=== PATIENT | male | born 1990 | race Caucasian/White ===

== ENCOUNTER 2021-11-24 15:51 | Emergency (ER) | payer OTHER ==
[2021-11-24 16:09] VITALS: BP 124/71; PULSE 93; TEMP 98.2; BMI 22.6
[2021-11-24] MEDS ORDERED: KETOROLAC TROMETHAMINE 30 MG/1 ML VIAL IM ONE (16:59)
[2021-11-24] MEDS ORDERED: LIDOCAINE HCL 2% JELLY (30 ML/TUBE) TP ONE (17:01)
[2021-11-24] MEDS ORDERED: KETOROLAC TROMETHAMINE 30 MG/1 ML VIAL ONE (17:04)
== END 2021-11-24 17:18 | disposition home or self-care (01) ==
LOC: JERFT 15:51
PROC: 3E0233Z Introduction of Anti-inflammatory into Muscle, Percutaneous Approach (ICD-10-PCS; principal; 2021-11-24)
DX: K08.89 Other specified disorders of teeth and supporting structures (principal); K05.329 Chronic periodontitis, generalized, unspecified severity
CPT/HCPCS: 99284-25

== ENCOUNTER 2021-11-25 04:19 | Emergency (ER) | payer OTHER ==
[2021-11-25 04:29] VITALS: TEMP 98.1; BMI 22.6
[2021-11-25] MEDS ORDERED: ACETAMINOPHEN 1000 MG/100 ML BAG IVPB ONE (05:02)
[2021-11-25 05:45] LABS: BASO % 0.5 % (0-2.0); HEMATOCRIT 40.5 % (35.4-49); HEMOGLOBIN 13.3 GM/dL (11.7-16.9); MCH 29.6 pg (25.7-33.7); MCHC 32.9 g/dl (32.0-35.9); MEAN CELL VOLUME 90.1 fl (80-96); MEAN PLT VOLUME 7.9 fl (7.5-11.1); MONO % 9.3 % (3.8-10.2); NEUT % 63.2 % (42.8-82.8); PLATELET COUNT 302 10^3/uL (134-434); RBC 4.49 M/mm3 (4.00-5.60); RDW 12.8 % (11.9-15.9); WHITE BLOOD COUNT 11.7 K/mm3 (4.0-10.0)
[2021-11-25 06:07] LABS: CALCIUM 8.3 mg/dL (8.5-10.1)
[2021-11-25 06:08] LABS: ALBUMIN 3.1 g/dl (3.4-5.0); BLOOD UREA NITROGEN 14.2 mg/dL (7-18)
[2021-11-25 06:11] LABS: CREATININE 0.9 mg/dL (0.55-1.3)
[2021-11-25 06:13] LABS: BILIRUBIN,TOTAL 0.4 mg/dL (0.2-1)
[2021-11-25] MEDS ORDERED: PIPERACILLIN/TAZOB 4.5 GM 4.5 GM in DEXTROSE 5%-WATER 100 ML IVPB ONE (07:32)
[2021-11-25] MEDS ORDERED: VANCOMYCIN 500 MG in DEXTROSE 5%-WATER - 100 ML IVPB ONE (07:34)
[2021-11-25] MEDS ORDERED: morphine CARPU-JECT 4 MG/1 ML DISP.SYRIN IVPUSH ONE (07:36)
[2021-11-25] MEDS ORDERED: PIPERACILLIN/TAZOB 4.5 GM 4.5 GM/100 ML BAG IVPB ONE (07:55)
[2021-11-25] MEDS ORDERED: morphine SULFATE 4 MG/ML VIAL ONE (07:55)
[2021-11-25] MEDS ORDERED: AMPICILLIN NA/SULBACTAM NA 3 GM in SODIUM CHLORIDE 100 ML IVPB ONE (07:57)
[2021-11-25] MEDS ORDERED: VANCOMYCIN 2,000 MG in DEXTROSE 5%-WATER - 500 ML IVPB ONE (08:15)
[2021-11-25] MEDS ORDERED: morphine CARPU-JECT 2 MG/1 ML DISP.SYRIN IVPUSH ONE (09:09)
[2021-11-25 09:58] VITALS: BP 133/99; PULSE 75
== END 2021-11-25 10:00 | disposition short-term general hospital (02) ==
LOC: JER 04:19
PROC: 3E033GC Introduction of Other Therapeutic Substance into Peripheral Vein, Percutaneous Approach (ICD-10-PCS; principal; 2021-11-25)
DX: K08.89 Other specified disorders of teeth and supporting structures (principal)
CPT/HCPCS: 36415; 70491-TC; 80053; 85025; 99285-25

== ENCOUNTER 2022-11-08 20:56 | Emergency (ER) | payer OTHER ==
[2022-11-08 21:05] VITALS: BP 114/75; PULSE 96; RESP 20; TEMP 98.4; BMI 22.4
[2022-11-08] MEDS ORDERED: IBUPROFEN 600 MG TABLET (FP) PO ONE ×2 (22:23→22:28)
[2022-11-08] MEDS ORDERED: AMOXICILLIN 500 MG CAPSULE (FP) PO ONE (22:23)
[2022-11-08] MEDS ORDERED: predniSONE 20 MG TABLET (UD) PO ONE (22:23)
[2022-11-08] MEDS ORDERED: AMOXICILLIN 250 MG CAPSULE ONE (22:27)
[2022-11-08] MEDS ORDERED: predniSONE 20 MG TABLET (UD) ONE (22:28)
== END 2022-11-08 22:30 | disposition home or self-care (01) ==
LOC: JERFT 20:56 → JER 20:56 → JERFT 22:30
DX: J01.10 Acute frontal sinusitis, unspecified (principal); J40 Bronchitis, not specified as acute or chronic; F17.210 Nicotine dependence, cigarettes, uncomplicated; Z20.822 Contact with and (suspected) exposure to COVID-19
CPT/HCPCS: 0241U-QW; 71046-TC-FY; 99284-25

== ENCOUNTER 2024-03-08 02:18 | Emergency (ER) | payer OTHER ==
[2024-03-08 02:23] VITALS: BP 133/78; PULSE 85; RESP 18; TEMP 97.9; BMI 21.3
[2024-03-08] MEDS: ONDANSETRON *ODT* 4 MG TABLET SL ONE (03:04)
[2024-03-08] MEDS ORDERED: ONDANSETRON *ODT* 4 MG TABLET ONE (03:04)
== END 2024-03-08 06:30 | disposition left against medical advice (07) ==
LOC: JER 02:18
DX: S01.331A Puncture wound without foreign body of right ear, initial encounter (principal); R11.0 Nausea; W26.8XXA Contact with other sharp object(s), not elsewhere classified, initial encounter
CPT/HCPCS: 70450-TC; 99284-25; Q0162

== ENCOUNTER 2024-05-27 21:57 | Emergency (ER) | payer OTHER ==
[2024-05-27 22:07] VITALS: BP 111/81; PULSE 64; RESP 16; TEMP 98.6; BMI 22.6
[2024-05-27] MEDS ORDERED: IBUPROFEN 600 MG TABLET (FP) PO ONE (22:15)
[2024-05-27] MEDS: IBUPROFEN 600 MG TABLET (FP) PO ONE (22:17)
[2024-05-27] MEDS ORDERED: AMOX TR/POT CLAV 875MG/125MG TABLETS (FP) ONE (22:22)
[2024-05-27] MEDS: AMOX TR/POT CLAV 875MG/125MG TABLETS (FP) PO ONE (22:27)
== END 2024-05-27 22:27 | disposition home or self-care (01) ==
LOC: JER 21:57 → JERFT 21:57
DX: K06.8 Other specified disorders of gingiva and edentulous alveolar ridge (principal); K08.89 Other specified disorders of teeth and supporting structures
CPT/HCPCS: 99283-25